=== PATIENT | male | born 1970 | race Two or more races ===

== ENCOUNTER → 2020-04-17 15:03 | Outpatient (BNVA) | payer OTHER, SELFPAY | PROVIDERS: PCP Internal Medicine; Referring Provider Internal Medicine; Visit Provider Surgery | DX: L76.82 Other postprocedural complications of skin and subcutaneous tissue (principal); E66.01 Morbid (severe) obesity due to excess calories; I10 Essential (primary) hypertension | CPT/HCPCS: 99212 ==

== ENCOUNTER 2020-07-20 08:55 | Outpatient (REF) | payer OTHER, SELFPAY | END 2020-07-20 08:56 | disposition home or self-care (01) | LOC: HO.LAB 08:55 | PROVIDERS: Visit Provider Internal Medicine | DX: Z20.822 Contact with and (suspected) exposure to COVID-19 (principal) | CPT/HCPCS: 36415; C9803; U0003; U0005 ==

== ENCOUNTER 2020-09-11 08:34 | Outpatient (REF) | payer OTHER, SELFPAY ==
[2020-09-11 10:18] LABS: Alanine Aminotransferase 41 U/L (0-40); Albumin Level 4.4 g/dL (3.5-5.0); Alkaline Phosphatase 98 U/L (39-117); Anion Gap 14 (12-20); Aspartate Amino Transferase 27 U/L (5-37); Bilirubin Total 0.3 mg/dL (0.0-1.0); Blood Urea Nitrogen 15 mg/dL (9-16); Calcium 9.3 mg/dL (8.4-10.2); Carbon Dioxide 28 mmol/L (22-29); Chloride 102 mmol/L (96-108); Cholesterol 188 mg/dL; Estimated Glomerular Filt Rate > 60; Glucose Fasting 101 mg/dL (60-99); HDL Cholesterol 50 mg/dL; LDL Cholesterol Calculated 120 mg/dl; Potassium 4.7 mmol/L (3.3-5.1); Sodium 139 mmol/L (135-145); Total Protein 7.3 g/dL (6.5-8.0); Triglycerides 94 mg/dL
== END 2020-09-11 08:35 | disposition home or self-care (01) ==
LOC: HO.LAB 08:34
PROVIDERS: PCP Internal Medicine; Visit Provider Internal Medicine
DX: E78.5 Hyperlipidemia, unspecified (principal); I10 Essential (primary) hypertension
CPT/HCPCS: 36415; 80053; 80061

== ENCOUNTER → 2021-04-09 15:25 | Outpatient (BNVA) | payer OTHER, SELFPAY | PROVIDERS: PCP Internal Medicine; Visit Provider Internal Medicine | DX: G47.33 Obstructive sleep apnea (adult) (pediatric) (principal); E66.9 Obesity, unspecified; R40.0 Somnolence; R09.02 Hypoxemia; Z68.38 Body mass index [BMI] 38.0-38.9, adult | CPT/HCPCS: 99202 ==

== ENCOUNTER 2021-05-03 11:20 | Outpatient (REF) | payer OTHER, SELFPAY | END 2021-05-03 11:21 | disposition home or self-care (01) | LOC: HO.LAB 11:20 | PROVIDERS: Visit Provider Internal Medicine | DX: Z20.822 Contact with and (suspected) exposure to COVID-19 (principal) | CPT/HCPCS: 0241U; 36415; 87635; 87651; C9803 ==

== ENCOUNTER → 2021-06-08 20:46 | Outpatient (REF) | payer OTHER, SELFPAY | LOC: HO.SL 20:46 | PROVIDERS: PCP Internal Medicine; Visit Provider Internal Medicine | DX: G47.33 Obstructive sleep apnea (adult) (pediatric) (principal); R09.02 Hypoxemia; R40.0 Somnolence | CPT/HCPCS: 95811 ==

== ENCOUNTER → 2021-07-11 13:02 | Outpatient (BNVA) | payer OTHER, SELFPAY | PROVIDERS: PCP Internal Medicine; Visit Provider Internal Medicine | DX: G47.33 Obstructive sleep apnea (adult) (pediatric) (principal); E66.9 Obesity, unspecified; R09.02 Hypoxemia | CPT/HCPCS: 99212 ==

== ENCOUNTER 2021-07-11 17:39 | Outpatient (REF) | payer OTHER, SELFPAY ==
[2021-07-11 18:45] LABS: Amphetamine Screen Urine Not Detected (Not Detect); Barbiturates, Urine Not Detected (Not Detect); Benzodiazepines Screen Urine Not Detected (Not Detect); Cannabinoid Screen Urine Not Detected (Not Detect); Cocaine Screen Urine Not Detected (Not Detect); Fentanyl, urine Not Detected (Not Detect); Opiate Screen Urine Not Detected (Not Detect); Phencyclidine Screen Urine Not Detected (Not Detect)
[2021-07-20 08:55] LABS: Alphahydroxymidazolam,GCMS Ur NEGATIVE; Alphahydroxytriazolam, GCMS Ur NEGATIVE; Alprazolam, GCMS Urine NEGATIVE; Aminoclonazepam, GCMS Urine NEGATIVE; Flurazepam Metabolite,GCMS Ur NEGATIVE; Hydromorphone, Ur NEGATIVE; Lorazepam GCMS Urine NEGATIVE; Morphine, Ur NEGATIVE; Nordiazepam, GCMS Urine NEGATIVE; Norhydrocodone, Ur NEGATIVE; Noroxycodone, Ur NEGATIVE; Oxazepam, GCMS Urine NEGATIVE; Oxymorphone, Ur NEGATIVE; Temazepam, GCMS Urine NEGATIVE
[2021-07-20 08:56] LABS: Codeine, Ur NEGATIVE; Hydrocodone, Ur NEGATIVE; Oxycodone, Ur NEGATIVE
== END 2021-07-11 17:40 | disposition home or self-care (01) ==
LOC: HO.LNP 17:39
PROVIDERS: Visit Provider Internal Medicine
DX: Z79.891 Long term (current) use of opiate analgesic (principal)
CPT/HCPCS: 80307; 80346; 80364; 80365; 80373

== ENCOUNTER 2021-08-26 02:37 | Emergency (ER) | payer OTHER, SELFPAY ==
--- NOTE | ~2021-08-26 | XR_ITS ---
EXAMINATION: XR CHEST CLINICAL INFORMATION: Hypoxemia. COMPARISON: Chest radiograph 10/06/2018. TECHNIQUE: Frontal view of the chest was obtained. FINDINGS: Low lung volumes are present. No effusions or pneumothoraces identified. Making allowances for low lung volumes, no focal pulmonary consolidation identified. Grossly normal pattern of pulmonary vasculature. XR/XR chest 1V IMPRESSION: Low lung volumes; otherwise, no acute cardiopulmonary abnormalities.
[2021-08-26 03:00] VITALS: BP 109/64; PULSE 103; RESP 20; O2SAT 90
--- NOTE | 2021-08-26 03:01 | PC.NURSE ---
Patient O2 dropping to 80s on room air, attempted to given 2L NC supplemental O@ but patient refusing and pulling off. Patient verbally aggressive, refusing education on O2 supplementation. MD at bedside. Will monitor closely.
[2021-08-26 03:02] VITALS: BP 102/81; PULSE 104; RESP 10; O2SAT 88
--- NOTE | 2021-08-26 03:03 | PC.NURSE ---
Pt refused to put on nasal cannula for his oxygen in the mid 80s. Dr. Riley aware and stat X-ray ordered
--- NOTE | 2021-08-26 03:05 | PC.NURSE ---
Patient refusing Xray, KWAME Thompson at bedside, patient still refusing O2 NC.
--- NOTE | 2021-08-26 04:03 | PC.NURSE ---
pt refusing labs and told the lab jerman to get the f...out of his room he is talking with his . pt has pulled all leads off and refuses to let the sat probe on till he voids, urinal at bedside and pt still on the phone.
--- NOTE | 2021-08-26 04:07 | PC.NURSE ---
pt at bedside and pt is now in aggrement to allow the lab to draw his blood.
--- NOTE | 2021-08-26 04:15 | PC.NURSE ---
Addendum entered by Ama Hernandez RN 08/26/21 06:28: Dr Riley made aware. Original Note: Pt refusing care, Pt refusing IV/Lab draw, Pt refusing O2, Pt refusing cardiac monitoring/pulling off leads/bp cuff/02 sat probe, at bedside.
[2021-08-26 04:27] LABS: MANUAL DIFF FLAG NO
[2021-08-26 04:28] LABS: Basophils Absolute Auto 0.1 X10*3/uL (0.0-0.2); Basophils Percent Auto 0.7 % (0-2); Eosinophils Absolute Auto 0.2 X10*3/uL (0.0-0.4); Eosinophils Percent Auto 2.2 % (0-4); Hematocrit 49.2 % (42.0-52.0); Hemoglobin 16.2 g/dl (14.0-18.0); Imm Gran Abs Auto 0.06 X10*3/uL (0.00-0.03); Imm Gran Pct Auto 0.8 % (0.0-0.4); Lymphocytes Percent Auto 27.1 % (20-40); Mean Corpuscular HGB Conc 32.9 g/dl (31.0-36.0); Mean Corpuscular Volume 91.1 fL (80.0-98.0); Mean Platelet Volume 9.4 fL (9.4-12.4); Monocytes Absolute Auto 0.5 X10*3/uL (0.1-1.2); Monocytes Percent Auto 6.9 % (2-11); Neutrophils Absolute Auto 4.6 x10*3/uL (2.0-8.3); Neutrophils Percent Auto 62.3 % (45-73); Platelet Count 263 X10*3/uL (160-400); Red Cell Distribution Width 13.5 % (11.0-16.0); White Blood Count 7.3 X10*3/uL (4.8-10.8)
[2021-08-26 04:29] VITALS: PULSE 103; RESP 24; O2SAT 91
[2021-08-26 04:39] LABS: Ethanol 262 mg/dL
[2021-08-26 04:41] LABS: Amphetamine Screen Urine Not Detected (Not Detect); Barbiturates, Urine Not Detected (Not Detect); Benzodiazepines Screen Urine Not Detected (Not Detect); Cannabinoid Screen Urine Not Detected (Not Detect); Cocaine Screen Urine POSITIVE (Not Detect); Fentanyl, urine Not Detected (Not Detect); Opiate Screen Urine Not Detected (Not Detect); Phencyclidine Screen Urine Not Detected (Not Detect)
[2021-08-26 04:43] LABS: Alanine Aminotransferase 31 U/L (0-40); Albumin Level 4.2 g/dL (3.5-5.0); Alkaline Phosphatase 91 U/L (39-117); Anion Gap 20 (12-20); Aspartate Amino Transferase 38 U/L (5-37); Bilirubin Total 0.4 mg/dL (0.0-1.0); Blood Urea Nitrogen 11 mg/dL (9-16); Calcium 9.4 mg/dL (8.4-10.2); Carbon Dioxide 22 mmol/L (22-29); Chloride 100 mmol/L (96-108); Creatinine Clr Calc Pharmacy 160.6; Estimated Glomerular Filt Rate > 60; Glucose Random 127 mg/dL (60-115); Potassium 3.8 mmol/L (3.3-5.1); Sodium 138 mmol/L (135-145); Total Protein 7.3 g/dL (6.5-8.0)
--- NOTE | 2021-08-26 05:02 | ED_ITS ---
HPI - General Adult General Chief complaint: ETOH/Substance Use Stated complaint: etoh Time Seen by Provider: 08/26/21 02:57 Source: patient, family () and EMS Mode of arrival: EMS History of Present Illness HPI narrative: This is a 51-year-old male with history of CRISTIAN and increasing alcohol use (this information provided by patient's ) who is brought in by EMS after reportedly the patient was found in his car by the police department became very aggressive and at that time had been given 16 mg of Narcan. Patient denies any substance use but does endorse use of alcohol. Patient was reportedly aggressive and combative when please department got patient out of the car. Patient declining the use of CPAP machine at this time and endorses no further information. Related Data Home Medications Medication Instructions Recorded Confirmed hydroxyzine HCl 50 mg tablet 50 mg PO TID 01/27/20 07/11/21 prazosin 1 mg capsule 1 mg PO BEDTIME 01/27/20 07/11/21 Previous Rx's Medication Instructions Recorded tadalafil 20 mg tablet (Cialis) 20 mg PO DAILY 5 Days #5 tab 03/08/21 topiramate 50 mg tablet (Topamax) 50 mg PO DAILY 30 Days #30 tab 03/30/21 escitalopram oxalate 10 mg tablet 10 mg PO DAILY 90 Days #90 tab 07/11/21 lisinopril 20 1 tab PO DAILY 90 Days #90 tab 07/11/21 mg-hydrochlorothiazide 25 mg tablet omeprazole 20 mg capsule,delayed 20 mg PO DAILY #90 cap 08/05/21 release tramadol 50 mg tablet 50 mg PO Q4-6H PRN 30 Days #30 tab 08/19/21 Allergies Allergy/AdvReac Type Severity Reaction Status Date / Time Terbinafine Allergy Unknown diarrhea Verified 07/11/21 13:58 Review of Systems Review of Systems: Pertinent positives and negatives as stated in HPI 10 point review of systems is otherwise negative. [facility] Past Medical History Source: nursing notes reviewed Medical History Depression History of cocaine use Hypertension Hypoxemia Incisional pain Mild recurrent major depression Morbid obesity Obesity (BMI 35.0-39.9 without comorbidity) Physical exam Somnolence, daytime Symptoms of gastroesophageal reflux Use of opiates for therapeutic purposes Surgical History History of bilateral inguinal hernia repair History of umbilical hernia repair (12/10/19) Family History Family History Father Stroke Mother Diabetes Hypertension Social History Social History Housing: House Alcohol intake: current Alcohol intake frequency: a few times a week Alcohol type: hard liquor Patient Tobacco Use Status: Current everyday Tobacco user Cigarettes Per Day: 10 e-Cigarette/Vaping Use: Never Used Second Hand Smoke Exposure: No Advance Directives: No service: No Current occupational status: unemployed Physical Exam ED Vital Signs: Vital Signs - 24 hr 08/26/21 03:00 08/26/21 03:02 08/26/21 04:29 Pulse Rate 103 H 104 H 103 H Respiratory Rate 20 10 L 24 H Blood Pressure 109/64 102/81 Pulse Oximetry 90 L 88 L 91 L BMI result Body Mass Index 0.4 VITAL SIGNS: Reviewed. GENERAL: Well developed, well nourished, in no acute distress. HEAD: Normocephalic/atraumatic EYES: PERRLA, EOMI EARS: Ext canals without abnormality OROPHARYNX: no oral lesions noted, posterior pharynx clear NECK: Supple, no adenopathy, short thick neck LUNGS: Very diminished breath sounds on the right, low respirations/lung volumes. SpO2<90> when placed on capnography with 4 L of oxygen improvement to mid to upper 90s. CARDIOVASCULAR: Regular rate and rhythm without noted murmurs ABDOMEN: Soft, non-tender, non-distended with bowel sounds. SKIN: Inspection of the skin reveals no rashes NEUROLOGIC: Easily arouse and oriented x 3. Strength and sensation to light touch were grossly intact x 4. Course Course Course Narrative: 51-year-old male with history and clinical presentation consistent with alcohol use, patient declining the use of CPAP at this time although states that he has 1 at home. Initially patient declining lab work and chest x-ray but able to executive assistant to general counsel patient on the benefits. Basic labs obtained. Review of all investigations significant for BAL-162, presence of cocaine in the urine and patient remains somewhat antagonistic or otherwise sleeping with obstruction. Will not tolerate CPAP but is amenable to capnography. Patient signed out to Dr. Vega for MTF. Medical Decision Making Lab Data Result diagrams: 08/26/21 04:20 08/26/21 04:19 Labs: Lab Results 08/26/21 08/26/21 08/26/21 Range/Units 04:19 04:19 04:20 WBC 7.3 (4.8-10.8) X10*3/uL RBC 5.40 (4.60-5.80) X10*6/uL Hgb 16.2 (14.0-18.0) g/dl Hct 49.2 (42.0-52.0) % MCV 91.1 (80.0-98.0) fL MCH 30.0 (27.0-33.0) pg MCHC 32.9 (31.0-36.0) g/dl RDW 13.5 (11.0-16.0) % Plt Count 263 (160-400) X10*3/uL MPV 9.4 (9.4-12.4) fL Immature Gran % (Auto) 0.8 H (0.0-0.4) % Neut % (Auto) 62.3 (45-73) % Lymph % (Auto) 27.1 (20-40) % Collin % (Auto) 6.9 (2-11) % Eos % (Auto) 2.2 (0-4) % Baso % (Auto) 0.7 (0-2) % Lymph # (Auto) 2.0 (1.2-4.9) X10*3/uL Collin # (Auto) 0.5 (0.1-1.2) X10*3/uL Eos # (Auto) 0.2 (0.0-0.4) X10*3/uL Baso # (Auto) 0.1 (0.0-0.2) X10*3/uL Abs Immat Gran (auto) 0.06 H (0.00-0.03) X10*3/uL Absolute Neuts (auto) 4.6 (2.0-8.3) x10*3/uL Absolute Nucleated RBC 0.000 (0.0-0.012) X10*3/uL Nucleated RBC % (auto) 0.0 (0.0-0.2) /100WBC Sodium 138 (135-145) mmol/L Potassium 3.8 (3.3-5.1) mmol/L Chloride 100 (96-108) mmol/L Carbon Dioxide 22 (22-29) mmol/L Anion Gap 20 (12-20) BUN 11 (9-16) mg/dL Creatinine 1.07 (0.5-1.4) mg/dL Estim Creat Clear Calc 160.6 Estimated GFR > 60 Random Glucose 127 H (60-115) mg/dL Calcium 9.4 (8.4-10.2) mg/dL Total Bilirubin 0.4 (0.0-1.0) mg/dL AST 38 H D (5-37) U/L ALT 31 (0-40) U/L Alkaline Phosphatase 91 (39-117) U/L Total Protein 7.3 (6.5-8.0) g/dL Albumin 4.2 (3.5-5.0) g/dL Urine Opiates Screen (Not Detect) Urine Fentanyl Screen (Not Detect) Ur Barbiturates Screen (Not Detect) Ur Phencyclidine Scrn (Not Detect) Ur Amphetamines Screen (Not Detect) U Benzodiazepines Scrn (Not Detect) Urine Cocaine Screen (Not Detect) U Marijuana (THC) Screen (Not Detect) Ethyl Alcohol 262 mg/dL 08/26/21 Range/Units 04:20 WBC (4.8-10.8) X10*3/uL RBC (4.60-5.80) X10*6/uL Hgb (14.0-18.0) g/dl Hct (42.0-52.0) % MCV (80.0-98.0) fL MCH (27.0-33.0) pg MCHC (31.0-36.0) g/dl RDW (11.0-16.0) % Plt Count (160-400) X10*3/uL MPV (9.4-12.4) fL Immature Gran % (Auto) (0.0-0.4) % Neut % (Auto) (45-73) % Lymph % (Auto) (20-40) % Collin % (Auto) (2-11) % Eos % (Auto) (0-4) % Baso % (Auto) (0-2) % Lymph # (Auto) (1.2-4.9) X10*3/uL Collin # (Auto) (0.1-1.2) X10*3/uL Eos # (Auto) (0.0-0.4) X10*3/uL Baso # (Auto) (0.0-0.2) X10*3/uL Abs Immat Gran (auto) (0.00-0.03) X10*3/uL Absolute Neuts (auto) (2.0-8.3) x10*3/uL Absolute Nucleated RBC (0.0-0.012) X10*3/uL Nucleated RBC % (auto) (0.0-0.2) /100WBC Sodium (135-145) mmol/L Potassium (3.3-5.1) mmol/L Chloride (96-108) mmol/L Carbon Dioxide (22-29) mmol/L Anion Gap (12-20) BUN (9-16) mg/dL Creatinine (0.5-1.4) mg/dL Estim Creat Clear Calc Estimated GFR Random Glucose (60-115) mg/dL Calcium (8.4-10.2) mg/dL Total Bilirubin (0.0-1.0) mg/dL AST (5-37) U/L ALT (0-40) U/L Alkaline Phosphatase (39-117) U/L Total Protein (6.5-8.0) g/dL Albumin (3.5-5.0) g/dL Urine Opiates Screen Not Detected (Not Detect) Urine Fentanyl Screen Not Detected (Not Detect) Ur Barbiturates Screen Not Detected (Not Detect) Ur Phencyclidine Scrn Not Detected (Not Detect) Ur Amphetamines Screen Not Detected (Not Detect) U Benzodiazepines Scrn Not Detected (Not Detect) Urine Cocaine Screen POSITIVE H (Not Detect) U Marijuana (THC) Screen Not Detected (Not Detect) Ethyl Alcohol mg/dL Discharge Plan Discharge Clinical Impression: Alcoholic intoxication, CRISTIAN (obstructive sleep apnea), Alcohol dependence Patient Disposition: Still a Patient Prescriptions: No Action topiramate [Topamax] 50 mg tablet 50 mg PO DAILY 30 Days Qty: 30 0RF omeprazole 20 mg capsule,delayed release(DR/EC) 20 mg PO DAILY Qty: 90 3RF tramadol 50 mg tablet 50 mg PO Q4-6H PRN (Reason: pain) 30 Days Qty: 30 0RF hydroxyzine HCl 50 mg tablet 50 mg PO TID 0RF prazosin 1 mg capsule 1 mg PO BEDTIME 0RF tadalafil [Cialis] 20 mg tablet 20 mg PO DAILY 5 Days Qty: 5 0RF escitalopram oxalate 10 mg tablet 10 mg PO DAILY 90 Days Qty: 90 0RF lisinopril-hydrochlorothiazide 20-25 mg tablet 1 tab PO DAILY 90 Days Qty: 90 1RF
--- NOTE | 2021-08-26 06:05 | PC.NURSE ---
Olman AGGARWAL went into room 5 [facility] to assess pt because he could hear loud snorting sounds and patient thrashing in his bed. Olman AGGARWAL found pt with severe sleep apnea and choking on his own secretions, Olman AGGARWAL then alerted Dr. Riley and Lisa AGGARWAL, the charge nurse, Gogo also came in to help reposition pt, suction pt's airway and reposition pt in an upright sitting positon on the bed and apply a non rebreather. Pt then became alert and recovered his O2 sats in the 90s. Pt had previosuly been altered mental status and slurring his words due to ETOH. Pt had been refusing all cares and being aggravated at care by nurses and doctors. Pt is now more alert and being monitored more closely.
--- NOTE | 2021-08-26 06:27 | PC.NURSE ---
Addendum entered by Ama Hernandez RN 08/26/21 06:28: Dr Riley made aware. Original Note: Pt continues to be non compliant, taking off youth nutritional monitor leads, bp cuff, O2 probe.
--- NOTE | 2021-08-26 06:34 | PC.NURSE ---
respir called at 0604 for invasive airway. pt has severe sleep apnea. pt is in reverse position due to his thrashing around. foot of bed is elevated and while was in the room. dr presley made aware of pt history of sleep apnea with home machine.
[2021-08-26 07:46] VITALS: BP 137/104; PULSE 96; RESP 22; O2SAT 95
[2021-08-26 08:09] LABS: VBG Base Excess 0.1 mmol/L; VBG HCO3 28 mmol/L (22-26); VBG pCO2 57 mmHg; VBG pH 7.29 (7.32-7.43); VBG pO2 94 mmHg
[2021-08-26 08:44] LABS: Venous Blood Gas Refer to POC result
[2021-08-26 10:42] VITALS: BP 140/88; PULSE 93; RESP 21; TEMP 36.8; O2SAT 90
[2021-08-26 10:56] LABS: Venous Blood Gas Refer to POC result
[2021-08-26 10:57] LABS: VBG Base Excess 2.3 mmol/L; VBG HCO3 29 mmol/L (22-26); VBG pCO2 53 mmHg; VBG pH 7.34 (7.32-7.43); VBG pO2 74 mmHg
== END 2021-08-26 12:05 | disposition home or self-care (01) ==
PROVIDERS: Student in an Organized Health Care Education/Training Program; Emergency Provider Emergency Medicine
DX: F10.229 Alcohol dependence with intoxication, unspecified (principal); Y90.8 Blood alcohol level of 240 mg/100 ml or more; G47.33 Obstructive sleep apnea (adult) (pediatric); I10 Essential (primary) hypertension
CPT/HCPCS: 36415; 71045; 80053; 80307; 82077; 82803; 85025; 99284

== ENCOUNTER → 2021-09-26 10:26 | Outpatient (BNVA) | payer OTHER, SELFPAY | PROVIDERS: PCP Internal Medicine; Visit Provider Internal Medicine | DX: G47.33 Obstructive sleep apnea (adult) (pediatric) (principal); R09.02 Hypoxemia; E66.9 Obesity, unspecified; Z68.36 Body mass index [BMI] 36.0-36.9, adult | CPT/HCPCS: 99212 ==

== ENCOUNTER 2023-01-06 14:04 | Outpatient (AMB) | payer OTHER, SELFPAY ==
[2023-01-06 14:09] VITALS: BP 124/68; PULSE 92; O2SAT 95; BMI 37.6
--- NOTE | 2023-01-06 14:09 | A.OFFVIS_ITS ---
Intake Vital Signs 01/06/23 14:09 Height 6 ft Weight 277 lb BMI 37.6 BP 124/68 Blood Pressure Location Lt brachial Position Sitting Pulse 92 Pulse Source Pulse Oximeter Pulse Oximetry (%) 95 Oxygen Delivery Method Room Air Intake Visit Reasons: bandar Intake Note: pt is here for long overdue visit, he states he can fall asleep anywhere, he has a small bedroom and cannot fit oxygen concentrator in bedroom. He has not been using nothing for a while. Allergies terbinafine Allergy (Unknown, Verified 01/06/23 14:37) Diarrhea Medication List - Last Reconciled 01/06/23 by Kalyani Canchola MD [cpap mask and supplies As directed] hydroxyzine HCl 50 mg PO TID lisinopril-hydrochlorothiazide 20-25 mg 1 tab PO DAILY 90 days meloxicam 15 mg PO DAILY PRN 90 days mirtazapine 30 mg PO BEDTIME 90 days omeprazole 20 mg PO DAILY topiramate (Topamax) 50 mg PO DAILY 30 days Do you need a note to return to daycare/school/sports/work: No HPI bandar HPI Details 52 YEARS OLD GENTLEMAN IS GROSSLY OBESE. HE HAS SEVERE OBSTRUCTIVE SLEEP APNEA AND REQUIRED USE OF BIPAP/19/15 CM, WITH A FULLFACE MASK. PATIENT IS COMING FOR FOLLOW-UP AFTER MORE THAN A YEAR. HE STATES THAT HE HAS NOT BEEN USING SAYS BIPAP OR OXYGEN AT NIGHT. HE DOES NOT. GET GOOD SLEEP AND HE IS REMAINING SOMNOLENT AND SOMETIMES. EVEN CONFUSED DURING THE DAYTIME HE PRESENTS AN EXCUSE THAT HIS HAS BUT JEANIE SIZE BED AND THERE IS NO SPACE LEFT NEXT TO THE BED FOR THE BIPAP OR OXYGEN CONCENTRATOR. ALSO COMPLAINS THAT HE HAS CALLED THE DME SUPPLIER, [employer] AND HAS NOT BEEN ABLE TO MAKE A GOOD CONTACT. [facility] Medical History Mild recurrent major depression Physical exam Use of opiates for therapeutic purposes Hypoxemia Somnolence, daytime Obesity (BMI 35.0-39.9 without comorbidity) History of cocaine use Hypertension Depression Symptoms of gastroesophageal reflux Morbid obesity Incisional pain Surgical History History of umbilical hernia repair (12/10/19) History of bilateral inguinal hernia repair Family History Father Stroke Mother Diabetes Hypertension Social History Housing: House Alcohol intake: current Alcohol intake frequency: a few times a week Alcohol type: hard liquor Patient Tobacco Use Status: Current everyday Tobacco user Cigarettes Per Day: 10 e-Cigarette/Vaping Use: Never Used Second Hand Smoke Exposure: No service: No Current occupational status: unemployed Cognitive needs: No Hearing needs: No Vision needs: No Review of Systems Const All systems reviewed & are unremarkable except as noted in HPI and below Reports snoring Eyes Reports no additional complaints ENT Details: This patient has constant nasal congestion / obstruction. He feels sore in his throat and feels as if his throat is closing. Card Reports no additional complaints Resp Reports cough, Reports snoring and Reports wheezing (Intermittent) GI Reports heartburn (Has chronic GERD symptoms and has to use omeprazole 20 mg daily) Reports no additional complaints Musc Reports back pain (Chronic) Skin/Breast Reports system reviewed and no additional complaints, except as documented Neuro Reports no additional complaints Psych Reports depression and Reports mood swings Aller/Immun Reports wheezing (Intermittent) Physical Exam Vital Signs: Last Vital Signs Pulse 92 01/06/23 14:09 BP 124/68 01/06/23 14:09 Pulse Ox 95 01/06/23 14:09 Oxygen Delivery Method Room Air 01/06/23 14:09 BMI result Body Mass Index 37.6 Const Other: THIS GENTLEMAN TENDS TO DOZE OFF EVEN DURING CONVERSATION General: comfortable, no acute distress, alert and awake Orientation/consciousness: patient oriented x3 HEENT Head: Yes normal to inspection General nose exam: No nasal polyps present, No nasal discharge present and Abnormal mucous membranes and turbinates present (Nasal turbinates are enlarged on both side) Face and sinus: Yes sinuses nontender Mouth: oropharynx abnormals (Narrow and crowded oropharynx with Mallampati class 4) Throat: Yes posterior oropharynx normal Eyes General: appearance normal, both eyes and all related structures Neck Neck: Yes normal visual inspection, Yes no lymphadenopathy, Yes trachea midline, Yes no JVD and Yes other (Neck is very obese and short) Thyroid: Thyroid normal Chest Chest palpation & inspection: normal inspection of the chest, normal palpation of entire chest wall, no tenderness and Pacemaker present Resp Other: Percussion note resonant, breath sounds are equal on both sides somewhat decreased over the basilar areas. No wheezes rhonchi or crepitations are heard. Cardio Palpation: normal PMI Rate: regular rate Rhythm: regular rhythm Heart sounds: no gallops and no murmurs Peripheral pulses: Peripheral pulses 2+ throughout GI Palpation (GI): Soft to palpation, nontender, No hepatosplenomegaly present and no masses Auscultation: normal bowel sounds Back/Spine/Pelvis Thoracic/Lumbar Spine: thoracic and lumbar spine normal to inspection Skin General skin exam: no rashes or lesions noted Neuro General: patient oriented x3 and no focal motor deficits Cranial nerves: Yes CN's II-XII intact bilaterally Extrem General: Yes normal to inspection, Yes no clubbing, cyanosis or edema, Yes no calf tenderness and Yes venous stasis dermatitis (Has stasis edema of the left leg with superficial ulceration/bandaged) Psych Mental Status: mental status grossly normal Speech and movement: Normal speech and movement present Assessment & Plan Assessment & Plan (1) Obesity (BMI 35.0-39.9 without comorbidity): Comment: PATIENT REMAINS GROSSLY OBESE, EDUCATED HIM ABOUT DIET AND RESTRICTION OF THE CALORIES INTAKE. HE HAS POOR UNDERSTANDING, AND LACK OF MOTIVATION. Code(s): E66.9 - Obesity, unspecified (2) BANDAR (obstructive sleep apnea): Comment: HE HAS VERY SEVERE DEGREE OF OBSTRUCTIVE SLEEP APNEA, HE IS SUPPOSED TO USE BIPAP WITH PRESSURE SETTING 19/15 CM, REGULARLY EVERY NIGHT. I DISCUSSED WITH HIM THE RISKS OF NOT USING THE BIPAP, URGED TO USE BIPAP EVERY NIGHT. HAVING LESS SPACE IS NO EXCUSE. HE HAS TO TAKE CARE OF HIS HEALTH . IF THERE IS NOT ENOUGH SPACE FOR OXYGEN CONCENTRATOR IN THE BEDROOM, IT CAN BE PLACED OUTSIDE WITH A LONG TUBE . Code(s): G47.33 - Obstructive sleep apnea (adult) (pediatric) (3) Somnolence, daytime: Comment: HIS EXCESSIVE DAYTIME SLEEPINESS IS SECONDARY TO UNTREATED SEVERE OBSTRUCTIVE SLEEP APNEA. 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 Code(s): R40.0 - Somnolence (4) Hypoxemia: Comment: HE DID HAVE PERSISTENT HYPOXEMIA DURING THE NIGHT ALONG WITH SEVERE OBSTRUCTIVE SLEEP APNEA. HE IS SUPPOSED TO USE OXYGEN 5 L/MINUTE OR AT LEAST 4 L/MINUTE. IF THERE IS NOT ENOUGH SPACE IN THE BEDROOM THEY CAN MAKE ARRANGEMENT TO HAVE THE OXYGEN CONCENTRATOR OUTSIDE THE BEDROOM. Code(s): R09.02 - Hypoxemia Coding Level of Care Code Est Pt Level 4 (43114) Diagnoses Obesity (BMI 35.0-39.9 without comorbidity) E66.9 BANDAR (obstructive sleep apnea) G47.33 Somnolence, daytime R40.0 Hypoxemia R09.02
== END 2023-01-06 14:35 | disposition home or self-care (01) ==
PROVIDERS: PCP Internal Medicine; Visit Provider Internal Medicine
DX: E66.9 Obesity, unspecified (principal); G47.33 Obstructive sleep apnea (adult) (pediatric); R40.0 Somnolence; R09.02 Hypoxemia
CPT/HCPCS: 99214

== ENCOUNTER → 2023-01-06 14:04 | Outpatient (BNVA) | payer OTHER, SELFPAY | PROVIDERS: PCP Internal Medicine; Visit Provider Internal Medicine | DX: G47.33 Obstructive sleep apnea (adult) (pediatric) (principal); R40.0 Somnolence; R09.02 Hypoxemia; E66.9 Obesity, unspecified; Z68.37 Body mass index [BMI] 37.0-37.9, adult | CPT/HCPCS: 99212 ==

== ENCOUNTER 2023-01-16 13:50 | Outpatient (AMB) | payer OTHER, SELFPAY ==
[2023-01-16 13:58] VITALS: BP 134/76; PULSE 102; RESP 12; O2SAT 96; BMI 37.7
--- NOTE | 2023-01-16 13:58 | A.OFFPC_ITS ---
Vital Signs 01/16/23 13:58 Height 6 ft Weight 278 lb 2 oz BMI 37.7 BP 134/76 Blood Pressure Location Lt brachial Position Sitting Respiration 12 Pulse 102 H Pulse Source Pulse Oximeter Pulse Oximetry (%) 96 Oxygen Delivery Method Room Air Intake Visit Reasons: f/u Intake Note: Patient states that he has been very fatigued and also has been experiencing swelling in llegs. Patient would also like blood work done to check and see how his sugar is doing. Patient states that sometimes his shugars are high and sometimes theyre low. 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 Accompanied by: Self / Same As Patient Allergies terbinafine Allergy (Unknown, Verified 01/16/23 14:08) Diarrhea Medication List - Last Reconciled 01/16/23 by JAROD Gramajo [cpap mask and supplies As directed] hydroxyzine HCl 50 mg PO TID lisinopril-hydrochlorothiazide 20-25 mg 1 tab PO DAILY 90 days meloxicam 15 mg PO DAILY PRN 90 days mirtazapine 30 mg PO BEDTIME 90 days omeprazole 20 mg PO DAILY topiramate (Topamax) 50 mg PO DAILY 30 days Tobacco use date assessed: 12/04/21 Dental Screening Dental Screen Date: 01/16/23 Did you have a dental visit in the last 12 months?: No Did you have a dental problem in the last 6 months where you did not have access to dental care?: No Was dental information given to patient?: Patient has dentist HPI HPI Comments History of Present Illness Details This is a 52-year-old male with mild recurrent major depression, hypertension, chronic GERD and obstructive sleep apnea on CPAP that comes today for follow-up on his conditions. Depression stable on mirtazapine, patient was switched to emerge as being in hopes to improve his sleep walking however patient reports he continues to sleep walk nightly and he will wake up in areas of the house and remember how he got there. Patient also reports that her [address] made [address] the [address] out to his front porch. Blood pressure well controlled. GERD stable with medications. Patient reports he has not been compliant with his CPAP over the last few weeks, patient advised to start using CPAP machine since his can lead to increased daytime somnolence. Is a smoker and was advised to quit. Patient also reports bilateral lower extremity edema, will draw labs to further evaluate. [facility] Medical History Mild recurrent major depression Physical exam Use of opiates for therapeutic purposes Hypoxemia Somnolence, daytime Obesity (BMI 35.0-39.9 without comorbidity) History of cocaine use Hypertension Depression Symptoms of gastroesophageal reflux Morbid obesity Incisional pain Surgical History History of umbilical hernia repair (12/10/19) History of bilateral inguinal hernia repair Family History Father Stroke Mother Diabetes Hypertension Social History Housing: House Alcohol intake: current Alcohol intake frequency: a few times a week Alcohol type: hard liquor Patient Tobacco Use Status: Current everyday Tobacco user Tobacco use type: Cigarette Cigarettes Per Day: 10 e-Cigarette/Vaping Use: Never Used Second Hand Smoke Exposure: No service: No Current occupational status: unemployed Cognitive needs: No Hearing needs: No Vision needs: No Questionnaire Thrive Questionnaire Date Thrive assessed: 07/11/21 ARDEN-7 AMB Questionnaire ARDEN-7 Date ARDEN - 7 assessed: 07/11/21 Source: Developed by Drs. Kain Ge, Soo Funez, Virgilio Boss and colleagues, with an educational rachel from [employer]. Review of Systems Const Denies chills, Denies fatigue, Denies fever(s) and Denies poor appetite Eyes Denies no additional complaints ENT Reports Normal hearing present Card Denies chest pain, Denies syncope, Denies rapid heart rate and Denies dyspnea Resp Denies cough and Denies dyspnea GI Denies change in stool character, Denies constipation, Denies diarrhea, Denies nausea and Denies vomiting Denies dysuria, Denies urinary frequency and Denies urinary urgency Neuro Reports Normal hearing present, Denies confusion and Denies syncope Psych Denies confusion Endo Denies fatigue Physical exam (Primary Care) Vital Signs: Last Vital Signs Pulse 102 H 01/16/23 13:58 Resp 12 01/16/23 13:58 BP 134/76 01/16/23 13:58 Pulse Ox 96 01/16/23 13:58 Oxygen Delivery Method Room Air 01/16/23 13:58 BMI result Body Mass Index 37.7 Tobacco/Smoking Status: Tobacco use Status Tobacco use date assessed 12/04/21 01/16/23 14:05 Patient Tobacco Use Status Current everyday Tobacco 01/16/23 14:05 Tobacco use type Cigarette 01/16/23 14:05 e-Cigarette/Vaping Use Never Used 01/16/23 14:05 Thrive Assessment: Date of Thrive Assessment Date Thrive assessed 07/11/21 01/16/23 14:05 Const General: No confusion Orientation/consciousness: No confusion HENMT Head: Yes normocephalic and Yes atraumatic Eyes Conjunctivae: conjunctivae normal Chest Chest palpation & inspection: normal inspection of the chest Resp Effort & Inspection: normal respiratory effort Auscultation: clear to auscultation bilaterally, no crackles, no rhonchi and no wheezes Cardio Rate: regular rate Rhythm: regular rhythm Heart sounds: S1 normal heart sound present and S2 normal heart sound present GI Inspection: Yes normal to inspection Neuro General: No confusion Cranial nerves: Yes Normal hearing present Extrem General: Yes edema (trace ankle ) Assessment and Plan Assessment & Plan (1) Swelling of both lower extremities: Code(s): M79.89 - Other specified soft tissue disorders Plan: Bnp ordered to further evaluate. (2) Mild recurrent major depression: Code(s): F33.0 - Major depressive disorder, recurrent, mild Plan: Continue on mirtazapine. (3) Sleep walking: Code(s): F51.3 - Sleepwalking [somnambulism] Plan: Referral placed to sleep medicine. (4) Hypertension: Code(s): I10 - Essential (primary) hypertension Qualifiers: Hypertension type: essential hypertension Qualified Code(s): I10 - Essential (primary) hypertension Plan: Continue lisinopril-hydrochlorothiazide. Follow low-salt diet exercise. Plan Follow up in 6 months with pcp Orders: Orders B Type Natriuretic Peptide 01/16/23 M79.89 - Other specified soft tissue disorders Comprehensive [place]. Panel Fast 01/16/23 I10 - Essential (primary) hypertension Complete Blood Count no Diff 01/16/23 Z13.0 - Encounter for screening for diseases of the blood and blood-forming organs and certain disorders involving the immune mechanism Lipid Panel 01/16/23 Z13.220 - Encounter for screening for lipoid disorders TSH reflex Free T4 01/16/23 Z13.29 - Encounter for screening for other suspected endocrine disorder Referrals Sleep Medicine Referral F51.3 - Sleepwalking [somnambulism] Coding Level of Care Code Est Pt Level 4 (43667) Diagnoses Swelling of both lower extremities M79.89 Mild recurrent major depression F33.0 Sleep walking F51.3 Essential hypertension I10 Hypertension type: essential hypertension
== END 2023-01-16 14:19 | disposition home or self-care (01) ==
PROVIDERS: PCP Internal Medicine; Visit Provider Nurse Practitioner Family
DX: M79.89 Other specified soft tissue disorders (principal); F33.0 Major depressive disorder, recurrent, mild; F51.3 Sleepwalking [somnambulism]; I10 Essential (primary) hypertension
CPT/HCPCS: 99214

== ENCOUNTER 2024-02-18 14:26 | Outpatient (AMB) | payer OTHER, SELFPAY ==
[2024-02-18 14:33] VITALS: BP 108/80; PULSE 93; O2SAT 99; BMI 37.5
--- NOTE | 2024-02-18 14:33 | A.OFFVIS_ITS ---
Vital Signs 02/18/24 14:33 Height 5 ft 11 in Weight 269 lb BMI 37.5 BP 108/80 Blood Pressure Location Lt brachial Position Sitting Pulse 93 Pulse Source Pulse Oximeter Pulse Oximetry (%) 99 Oxygen Delivery Method Room Air Intake Visit Reasons: Obstructive sleep apnea Intake Note: pt is here for CRISTIAN, he states he has been sleep walking with falls, snore very loud and hard, daytime somnolence, not sleeping at night. 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 PATIENT IS COMING FOR FOLLOW-UP AFTER MORE THAN A YEAR. HE STATES THAT HE HAS NOT BEEN USING SAYS BIPAP OR OXYGEN AT NIGHT. HE DOES NOT GET GOOD SLEEP AND HE IS REMAINING SOMNOLENT AND SOMETIMES EVEN CONFUSED DURING THE DAYTIME HE PRESENTS AN EXCUSE THAT HIS HAS BUT JEANIE SIZE BED AND THERE IS NO SPACE LEFT NEXT TO THE BED FOR THE BIPAP OR OXYGEN CONCENTRATOR. ABOVE IS THE HISTORY THAT HE PROVIDED ON HIS LAST VISIT ON 01/06/2023. HE HAS NOT COME BACK FOR FOLLOW-UP SINCE THEN. TODAY HE COMES BACK, STATING THAT HE HAS LOST HIS CPAP MACHINE, WHEN HE HAD MOVED TO LIVE WITH A FRIEND WHO HAS NOW MOVED BACK TO [facility]. HE CLAIMS THAT HE LEFT HIS CPAP THERE, AND WHEN HE WENT BACK TO LOOK FOR THE MACHINE IT HAD ALREADY BEEN THROWN AWAY SOME AIR. NEEDLESS TO SAY THAT HE IS PARTLY CONFUSED, AND DURING THE CONVERSATION HE TENDS TO FALL ASLEEP. HE DENIES USING ANY ILLICIT DRUGS. HE IS BEING TREATED WITH THE TOPAMAX 50 MG DAILY, MIRTAZAPINE 30 MG AT BEDTIME HYDROXYZINE 50 MG T.I.D. LISINOPRIL-HCTZ DAILY. * ALSO TELLS US THAT HE IS SCHEDULED TO GO TO [place] IN APRIL 2024. HE WAS HOPING TO GET HIS CPAP BACK BEFORE THAT. [facility] Medical History Mild recurrent major depression Physical exam Use of opiates for therapeutic purposes Hypoxemia Somnolence, daytime Obesity (BMI 35.0-39.9 without comorbidity) History of cocaine use Hypertension Depression Symptoms of gastroesophageal reflux Morbid obesity Incisional pain Surgical History History of umbilical hernia repair (12/10/19) History of bilateral inguinal hernia repair Family History Father Stroke Mother Diabetes Hypertension Social History Housing: House Alcohol intake: current Alcohol intake frequency: a few times a week Alcohol type: hard liquor Patient Tobacco Use Status: Current everyday Tobacco user Tobacco use type: Cigarette Cigarettes Per Day: 10 e-Cigarette/Vaping Use: Never Used Second Hand Smoke Exposure: No service: No Current occupational status: unemployed Cognitive needs: No Hearing needs: No Vision needs: No Review of Systems Const All systems reviewed & are unremarkable except as noted in HPI and below Reports snoring Eyes Reports no additional complaints ENT Details: This patient has constant nasal congestion / obstruction. He feels sore in his throat and feels as if his throat is closing. Card Reports no additional complaints Resp Reports cough, Reports snoring and Reports wheezing (Intermittent) GI Reports heartburn (Has chronic GERD symptoms and has to use omeprazole 20 mg daily) Reports no additional complaints Musc Reports back pain (Chronic) Skin/Breast Reports system reviewed and no additional complaints, except as documented Neuro Reports no additional complaints Psych Reports depression and Reports mood swings Aller/Immun Reports wheezing (Intermittent) Physical Exam Vital Signs: Last Vital Signs Pulse 93 02/18/24 14:33 BP 108/80 02/18/24 14:33 Pulse Ox 99 02/18/24 14:33 Oxygen Delivery Method Room Air 02/18/24 14:33 BMI result Body Mass Index 37.5 Const Other: THIS GENTLEMAN TENDS TO DOZE OFF EVEN DURING CONVERSATION General: comfortable, no acute distress, alert and awake Orientation/consciousness: patient oriented x3 HEENT Head: Yes normal to inspection General nose exam: No nasal polyps present, No nasal discharge present and Abnormal mucous membranes and turbinates present (Nasal turbinates are enlarged on both side) Face and sinus: Yes sinuses nontender Mouth: oropharynx abnormals (Narrow and crowded oropharynx with Mallampati class 4) Throat: Yes posterior oropharynx normal Eyes General: appearance normal, both eyes and all related structures Neck Neck: Yes normal visual inspection, Yes no lymphadenopathy, Yes trachea midline, Yes no JVD and Yes other (Neck is very obese and short) Thyroid: Thyroid normal Chest Chest palpation & inspection: normal inspection of the chest, normal palpation of entire chest wall, no tenderness and Pacemaker present Resp Other: Percussion note resonant, breath sounds are equal on both sides somewhat decreased over the basilar areas. No wheezes rhonchi or crepitations are heard. Cardio Palpation: normal PMI Rate: regular rate Rhythm: regular rhythm Heart sounds: no gallops and no murmurs Peripheral pulses: Peripheral pulses 2+ throughout GI Palpation (GI): Soft to palpation, nontender, No hepatosplenomegaly present and no masses Auscultation: normal bowel sounds Back/Spine/Pelvis Thoracic/Lumbar Spine: thoracic and lumbar spine normal to inspection Skin General skin exam: no rashes or lesions noted Neuro General: patient oriented x3 and no focal motor deficits Cranial nerves: Yes CN's II-XII intact bilaterally Extrem General: Yes normal to inspection, Yes no clubbing, cyanosis or edema, Yes no calf tenderness and Yes venous stasis dermatitis (Has stasis edema of the left leg with superficial ulceration/bandaged) Psych Mental Status: mental status grossly normal Speech and movement: Normal speech and movement present Assessment & Plan Assessment & Plan (1) Obesity (BMI 35.0-39.9 without comorbidity): Comment: PATIENT REMAINS GROSSLY OBESE, EDUCATED HIM ABOUT DIET AND RESTRICTION OF THE CALORIES INTAKE. HE HAS POOR UNDERSTANDING, AND LACK OF MOTIVATION. Code(s): E66.9 - Obesity, unspecified Category: Medical Plan: AGAIN EXPLAINED TO HIM THAT HE NEEDS TO LOSE SOME WEIGHT. (2) CRISTIAN (obstructive sleep apnea): Comment: HE HAS VERY SEVERE DEGREE OF OBSTRUCTIVE SLEEP APNEA, HE IS SUPPOSED TO USE BIPAP WITH PRESSURE SETTING 19/15 CM, REGULARLY EVERY NIGHT. I DISCUSSED WITH HIM THE RISKS OF NOT USING THE BIPAP, URGED TO USE BIPAP EVERY NIGHT. HAVING LESS SPACE IS NO EXCUSE. HE HAS TO TAKE CARE OF HIS HEALTH . IF THERE IS NOT ENOUGH SPACE FOR OXYGEN CONCENTRATOR IN THE BEDROOM, IT CAN BE PLACED OUTSIDE WITH A LONG TUBE . Code(s): G47.33 - Obstructive sleep apnea (adult) (pediatric) Category: Medical Plan: * THE PROBLEM THAT WE FACE AT THIS TIME THAT THIS GENTLEMAN HAS LOST HIS CPAP DEVICE. I HAVE FIND IT HARD TO UNDERSTAND HOW GOOD HE LOSE THE CPAP MACHINE. CHECKED WITH DME PROVIDER AND THEY HAVE TOLD THAT HE IS NOT ELIGIBLE TO GET IS NEW CPAP MACHINE FOR 5 YEARS, ACCORDING TO THE INSURANCE POLICY. EXPLAINED TO HIM AND TOLD HIM THAT THE ONLY WAY TO GET CPAP WOULD BE TO BUY [id number], WHICH HE CAN NOT. I TOLD HIM THAT WE WILL CONTINUE TO WORK WITH THE DME COMPANY AND SEE IF WE CAN GET A USED CPAP AT A NOMINAL [place] FOR HIM. (3) Somnolence, daytime: Comment: HIS EXCESSIVE DAYTIME SLEEPINESS IS SECONDARY TO UNTREATED SEVERE OBSTRUCTIVE SLEEP APNEA. ADVISED HIM NOT TO ENGAGE IN ANY DRIVING OR WORKING WITH FAST MOVING MACHINERY. Code(s): R40.0 - Somnolence Category: Medical Plan: PATIENT ADVISE THAT HE IS NOT SUPPOSED TO ENGAGE IN ANY HEAVY PHYSICAL WORK AND ALSO SHOULD NOT WORK ON ANY FAST MOVING EQUIPMENT. Coding Level of Care Code Est Pt Level 3 (61993) Diagnoses Obesity (BMI 35.0-39.9 without comorbidity) E66.9 CRISTIAN (obstructive sleep apnea) G47.33 Somnolence, daytime R40.0
== END 2024-02-18 15:06 | disposition home or self-care (01) ==
PROVIDERS: PCP Internal Medicine; Visit Provider Internal Medicine
DX: E66.9 Obesity, unspecified (principal); G47.33 Obstructive sleep apnea (adult) (pediatric); R40.0 Somnolence
CPT/HCPCS: 99213

== ENCOUNTER → 2024-02-18 14:26 | Outpatient (BNVA) | payer OTHER, SELFPAY | PROVIDERS: PCP Internal Medicine; Visit Provider Internal Medicine | DX: G47.33 Obstructive sleep apnea (adult) (pediatric) (principal); R40.0 Somnolence; E66.9 Obesity, unspecified; Z68.37 Body mass index [BMI] 37.0-37.9, adult | CPT/HCPCS: 99212 ==